=== PATIENT | female | born 1995 | race Caucasian/White ===

== ENCOUNTER 2021-04-13 01:55 | Emergency (ER) | payer MEDICAID, SELFPAY ==
[~2021-04-13] VITALS: Ht 157.5 cm; Wt 59.0 kg
[2021-04-13 03:17] VITALS: BP_SYST 120
--- NOTE | 2021-04-13 03:24 | NUR ---
ER Dr. Hendrix in triage examining patient.
[2021-04-13] MEDS ORDERED: ONDANSETRON HCL 4 MG/2 ML VIAL IVP ONE (03:45)
[2021-04-13] MEDS ORDERED: NACL 0.9% 1,000 ML IV ONE (03:45)
--- NOTE | 2021-04-13 03:50 | NUR ---
Covid-19 and influenza A and B specimen collected, swabbed nares.
--- NOTE | 2021-04-13 04:20 | NUR ---
Patient states she is feeling better.
[2021-04-13] MEDS ORDERED: ONDA-8 TL (04:22)
[2021-04-13 05:40] VITALS: BP_SYST 121
--- NOTE | 2021-04-13 05:40 | NUR ---
Patient given written and verbal discharge instructions and verbalizes understanding. ER MD discussed with patient the results and treatment provided. Patient in stable condition. ID arm band removed. IV catheter removed intact and dressing applied, no active bleeding. Rx of Ondansetron sent to pharmacy of choice. Patient educated on pain management and to follow up with PMD. Pain Scale 2/10. Opportunity for questions provided and answered.
== END 2021-04-13 05:40 | disposition home or self-care (01) ==
LOC: SED 01:55
DX: R11.2 Nausea with vomiting, unspecified (principal); J02.9 Acute pharyngitis, unspecified; Z20.822 Contact with and (suspected) exposure to COVID-19
CPT/HCPCS: 36415; 86710; 87426; 96361; 96374; 99283; J2405; J7030